=== PATIENT | male | born 2000 | race Caucasian/White ===

== ENCOUNTER 2022-05-08 08:19 | Day surgery (SDC) | payer OTHER, SELFPAY ==
[2022-05-08] MEDS ORDERED: Piperacillin/Tazobactam 3.375 GM VIAL ONE (09:47)
[2022-05-08] MEDS ORDERED: Sodium Chloride 0.9% 100 ML ONE (09:49)
[2022-05-08] MEDS ORDERED: Midazolam HCl 2 mg/2 ml Vial ONE ×2 (09:51→10:09)
[2022-05-08] MEDS ORDERED: Famotidine/PF 20 mg/2ml Vial ONE (09:51)
[2022-05-08] MEDS ORDERED: fentaNYL PF 100 MCG/2 ML SYRINGE ONE (10:07)
[2022-05-08] MEDS ORDERED: Bupivacaine/Epinephrine 0.25% 30 ML VIAL ONE (10:09)
[2022-05-08] MEDS ORDERED: Rocuronium Bromide 10 MG/ML (10ML VIAL) ONE (10:28)
[2022-05-08] MEDS ORDERED: PROPOFOL 200 MG/20 ML VIAL ONE (10:28)
[2022-05-08] MEDS ORDERED: Succinylcholine 200 MG/10 ml SYRINGE FS ONE (10:28)
[2022-05-08] MEDS ORDERED: Ketorolac Tromethamine 30 MG/ML VIAL ONE (10:28)
[2022-05-08] MEDS ORDERED: NEOSTIGMINE 3 MG/3 ML SYR 3 MG/3 ML SYRINGE ONE (10:28)
[2022-05-08] MEDS ORDERED: Ondansetron PF 4 MG/2 ML Vial ONE (10:28)
[2022-05-08] MEDS ORDERED: Dexmedetomidine 200 MCG/2 ML VIAL ONE (10:59)
[2022-05-08] MEDS ORDERED: Meperidine HCl/PF 25 MG/ML VIAL ONE (11:09)
[2022-05-08] MEDS ORDERED: Promethazine HCl 25 MG/ML VIAL ONE ×2 (11:56→12:08)
[2022-05-08] MEDS ORDERED: FENTANYL 50 MCG/ML 1 ML VIAL ONE (12:13)
== END 2022-05-08 13:45 | disposition home or self-care (01) ==
LOC: SDC 08:19
PROVIDERS: ATTEND Surgery
PROC: 0DTJ4ZZ Resection of Appendix, Percutaneous Endoscopic Approach (ICD-10-PCS; principal; 2022-05-08)
DX: K35.80 Unspecified acute appendicitis (principal)
CPT/HCPCS: 88304; A4649; J1885; J2175; J2250; J2405; J2543; J2550; J2704; J3010; J3490; J7643; S0028